=== PATIENT | male | born 1975 | race Caucasian/White ===

== ENCOUNTER 2017-11-04 22:21 | Emergency (ER) | payer OTHER ==
[2017-11-04] MEDS ORDERED: DIAZEPAM 5 MG TAB PO STA (23:07)
--- NOTE | 2017-11-04 23:59 | ED ---
General Adult HPI - General Chief complaint: Urogenital Stated complaint: hernia Time Seen by Provider: 11/04/17 22:59 Source: patient, RN notes reviewed Mode of arrival: ambulatory Limitations: no limitations - History of Present Illness Initial comments: Patient is a 42-year-old male presented to the emergency room today with a chief complaint of a abdominal hernia. Patient states that this was diagnosed proximal to go. He denies any specific trauma to the area. States that today when he woke up noticing that having more pain. Patient states is typically able to reduce it down on his own. Patient denies any other points her symptoms. Patient denies any recent fever, chills, shortness of breath, chest pain, back pain, nausea or vomiting, numbness or tingling, headaches or visual changes, or any other complaints. - Related Data Allergies Allergy/AdvReac Type Severity Reaction Status Date / Time No Known Allergies Allergy Verified 11/04/17 22:26 Review of Systems ROS Statement: Those systems with pertinent positive or pertinent negative responses have been documented in the HPI. ROS Other: All systems not noted in ROS Statement are negative. Past Medical History Past Medical History: Hypertension Additional Past Medical History / Comment(s): alcoholic, History of Any Multi-Drug Resistant Organisms: None Reported Past Surgical History: Appendectomy Past Psychological History: No Psychological Hx Reported Smoking Status: Current every day smoker Past Alcohol Use History: Abuse, Daily Past Drug Use History: None Reported General Exam - General Exam Comments Initial Comments: General: The patient is awake and alert, in no distress, and does not appear acutely ill. Eye: Pupils are equal, round and reactive to light, extra-ocular movements are intact. No nystagmus. There is normal conjunctiva bilaterally. No signs of icterus. . Neck: The neck is supple, there is no tenderness or JVD. Cardiovascular: There is a regular rate and rhythm. No murmur, rub or gallop is appreciated. Respiratory: Lungs are clear to auscultation, respirations are non-labored, breath sounds are equal. No wheezes, stridor, rales, or rhonchi. Gastrointestinal: Abdomen soft on palpation. Patient does have a hernia located in the right lower quadrant.. Was able to be completely reduced. Musculoskeletal: Normal ROM, no tenderness. Strength 5/5. Sensation intact. Neurological: A&O x 3. CN II-XII intact, There are no obvious motor or sensory deficits. Coordination appears grossly intact. Speech is normal. Skin: Skin is warm and dry and no rashes or lesions are noted. Psychiatric: Cooperative, appropriate mood & affect, normal judgment. Limitations: no limitations Course Vital Signs 11/04/17 11/04/17 22:23 23:22 Temperature 98.0 F Pulse Rate 65 60 Respiratory 18 16 Rate Blood Pressure 121/79 139/81 O2 Sat by Pulse 99 100 Oximetry Medical Decision Making - Medical Decision Making Patient does have reducible hernia. Is advised to follow-up surgeon. He states he is from the [facility] plans follow-up with surgeon in this area patient advised to hold pressure to the area with certain movements advised to follow-up return to emergency room if unable to reduce it hernia himself. Disposition Clinical Impression: Abdominal hernia Disposition: HOME SELF-CARE Condition: Good Instructions: Inguinal Hernia (ED) Additional Instructions: Please hold pressure to the area as discussed with certain movements. Please follow-up with surgeon over the next 2 days. Please return to emergency room if the symptoms increase or worsen or for any other concerns. Is patient prescribed a controlled substance at d/c from ED?: No Referrals: None,Stated [Primary Care Provider] - 1-2 days Time of Disposition: 23:58
[2017-11-05 00:28] VITALS: BP 129/69; PULSE 77; RESP 18; TEMP 97.7
== END 2017-11-05 00:28 | disposition home or self-care (01) ==
LOC: EC 22:21
DX: K46.9 Unspecified abdominal hernia without obstruction or gangrene (principal); F17.200 Nicotine dependence, unspecified, uncomplicated; Z90.49 Acquired absence of other specified parts of digestive tract
CPT/HCPCS: 99283